=== PATIENT | female | born 1960 | race Asian ===

== ENCOUNTER → 2016-10-24 | Outpatient (CLI) | payer BC ==
[~2016-10-24] MED LIST: SINGULAIR; ZANTAC150 M2 PO; ZYRTEC
== END ==
LOC: RAD 09:48
DX: M47.896 Other spondylosis, lumbar region (principal)

== ENCOUNTER → 2017-02-06 | Outpatient (CLI) | payer BC | LOC: ULTRA 07:36 | DX: R10.2 Pelvic and perineal pain (principal); N93.9 Abnormal uterine and vaginal bleeding, unspecified; M54.30 Sciatica, unspecified side ==